=== PATIENT | male | born 1955 | race Caucasian/White ===

== ENCOUNTER 2022-02-08 13:17 | Outpatient (REF) | payer MEDICARE, SELFPAY ==
[2022-02-08 17:50] LABS: ALT 127 U/L (16-63); AST 167 U/L (15-37); Alkaline Phosphatase 77 U/L (46-116); Anion Gap 7.4 mmol/L (3-11); BUN 15 mg/dL (7-18); Bilirubin, Total 0.5 mg/dL (0.2-1.0); CO2 29.6 mmol/L (21.0-32.0); Calcium 8.6 mg/dL (8.5-10.1); Calculated LDL 110 mg/dL (<100); Chloride 105 mmol/L (98-107); Cholesterol 181 mg/dL (<200); Glucose 91 mg/dL (74-106); HDL Cholesterol 63 mg/dL (40-60); Sodium 142 mmol/L (136-145); Total Protein 7.3 g/dL (6.4-8.2); Triglyceride 43 mg/dL (<150); Vitamin B12 534 pg/mL (193-986)
[2022-02-11 09:42] LABS: PSA, Screening 1.3 ng/mL (<=4.5)
== END 2022-02-08 13:18 | disposition home or self-care (01) ==
LOC: NCHCN 13:17
PROVIDERS: PCP Nurse Practitioner; Visit Provider Nurse Practitioner Family
DX: E78.5 Hyperlipidemia, unspecified (principal); K42.9 Umbilical hernia without obstruction or gangrene; J30.2 Other seasonal allergic rhinitis; H91.93 Unspecified hearing loss, bilateral; F43.21 Adjustment disorder with depressed mood; N20.0 Calculus of kidney; K22.70 Barrett's esophagus without dysplasia; I10 Essential (primary) hypertension
CPT/HCPCS: 80053; 80061; 84153; 82607; 83735

== ENCOUNTER 2022-06-04 15:19 | Outpatient (REF) | payer MEDICARE, SELFPAY | END 2022-06-04 15:20 | disposition home or self-care (01) | LOC: NCHCN 15:19 | PROVIDERS: PCP Nurse Practitioner; Visit Provider Nurse Practitioner Family | DX: N20.0 Calculus of kidney (principal) | CPT/HCPCS: 87086 ==

== ENCOUNTER 2022-07-01 10:44 | Outpatient (REF) | payer MEDICARE, SELFPAY ==
[2022-07-01 17:50] LABS: Anion Gap 8.2 mmol/L (3-11); BUN 17 mg/dL (7-18); CO2 27.8 mmol/L (21.0-32.0); Calcium 8.7 mg/dL (8.5-10.1); Chloride 106 mmol/L (98-107); Estimated GFR 83.01 (mL/min/1.73m2); Glucose 134 mg/dL (74-106); Potassium 3.7 mmol/L (3.5-5.1); Sodium 142 mmol/L (136-145)
== END 2022-07-01 10:45 | disposition home or self-care (01) ==
LOC: NCHCN 10:44
PROVIDERS: PCP Nurse Practitioner; Visit Provider Nurse Practitioner Family
DX: I10 Essential (primary) hypertension (principal)
CPT/HCPCS: 80048

== ENCOUNTER 2022-09-17 13:36 | Outpatient (REF) | payer MEDICARE, SELFPAY ==
[2022-09-17 14:50] LABS: Anion Gap 5.3 mmol/L (3-11); BUN 19 mg/dL (7-18); CO2 30.7 mmol/L (21.0-32.0); CREATININE 1.1 mg/dL (0.70-1.30); Chloride 104 mmol/L (98-107); Estimated GFR 73.58 (mL/min/1.73m2); Glucose 94 mg/dL (74-106); Potassium 4.1 mmol/L (3.5-5.1); Sodium 140 mmol/L (136-145)
== END 2022-09-17 13:37 | disposition home or self-care (01) ==
LOC: NCHCN 13:36
PROVIDERS: PCP Nurse Practitioner; Visit Provider Nurse Practitioner Family
DX: I10 Essential (primary) hypertension (principal); J45.20 Mild intermittent asthma, uncomplicated; F43.21 Adjustment disorder with depressed mood
CPT/HCPCS: 80048

== ENCOUNTER 2023-05-30 12:31 | Outpatient (CLI) | payer MEDICARE, SELFPAY ==
--- NOTE | 2023-05-30 | DI.RAD_ITS ---
Exam(s) XR FOOT RT COMPLETE EXAM: XR FOOT RT COMPLETE CLINICAL HISTORY: RT FOOT PAIN, [id number]. TECHNIQUE: 2D digital imaging was performed of the right foot. Three images were obtained. AP, obl ique and lateral views were obtained. COMPARISON: No exams were available for comparison FINDINGS: BONES: No acute fracture is present. No bony destructive lesion is seen. There is a small spur at the plantar surface of the calcaneus. There is an enthesophyte at the posterior calcaneus. JOINTS: No dislocation present. Mild degenerative changes are seen. SOFT TISSUE: Normal. IMPRESSION: 1. No acute abnormality. 2. Mild degenerative changes of the foot. DATA REPOSITORY: RADIATION DOSE DELIVERED:
== END 2023-05-30 12:51 ==
LOC: DI 12:31
PROVIDERS: PCP Nurse Practitioner Family; Visit Provider Family Medicine
DX: M19.071 Primary osteoarthritis, right ankle and foot
CPT/HCPCS: 73630

== ENCOUNTER 2023-10-28 10:35 | Outpatient (REF) | payer MEDICARE, SELFPAY ==
[2023-10-28 15:01] LABS: Abs Immature Grans 0.04 10^3/uL (0.0-0.06); Absolute Basophil Count 0.04 10^3/uL (0.0-0.2); Absolute Eosinophil Count 0.11 10^3/uL (0.0-0.7); Absolute Lymphocyte Count 1.39 10^3/uL (1.2-3.4); Absolute Monocyte Count 0.76 10^3/uL (0.1-0.8); Absolute Neutrophil Count 5.84 10^3/uL (1.2-6.7); Basophils % 0.5; Eosinophils % 1.3; HCT 45.7 % (40.0-50.0); HGB 14.9 g/dL (13.5-17.5); Immature Grans % 0.5; MCH 29.2 pg (27.0-33.0); MCHC 32.6 % (32.0-36.0); MCV 90 fL (80-95); MPV 9.6 fL (8.0-11.0); Monocytes % 9.3; Neutrophils % 71.4; Platelet Count 240 10^3/uL (130-400); RDW 12.5 % (11.8-14.1); RDW-SD 41.9 fL; WBC 8.18 10^3/uL (4.4-10.8)
[2023-10-28 15:46] LABS: ALT 61 U/L (16-63); AST 40 U/L (15-37); Albumin 4.2 g/dL (3.4-5.0); Alkaline Phosphatase 64 U/L (46-116); Anion Gap 6.2 mmol/L (3-11); BUN 18 mg/dL (7-18); Bilirubin, Total 0.4 mg/dL (0.2-1.0); CO2 32.8 mmol/L (21.0-32.0); CREATININE 1.1 mg/dL (0.70-1.30); Calcium 9.7 mg/dL (8.5-10.1); Calculated LDL 165 mg/dL (<100); Chloride 101 mmol/L (98-107); Cholesterol 239 mg/dL (<200); Estimated GFR 73.12 (mL/min/1.73m2); Glucose 109 mg/dL (74-106); HDL Cholesterol 53 mg/dL (40-60); Magnesium 2.2 mg/dL (1.8-2.4); Potassium 4.6 mmol/L (3.5-5.1); Sodium 140 mmol/L (136-145); Total Protein 7.7 g/dL (6.4-8.2); Triglyceride 107 mg/dL (<150); Vitamin B12 583 pg/mL (193-986)
[2023-10-28 22:08] LABS: PSA, Diagnostic 0.8 ng/mL (<=4.5)
[2023-10-28 23:02] LABS: Hepatitis A Antibody IgM Negative (Negative); Hepatitis B Core Antibody Negative (Negative); Hepatitis B surface Ag Negative (Negative); Hepatitis C Ab w Rflx HCV PCR Negative (Negative)
== END 2023-10-28 10:36 | disposition home or self-care (01) ==
LOC: NCHCN 10:35
PROVIDERS: PCP Nurse Practitioner Family; Visit Provider Nurse Practitioner Family
DX: K76.0 Fatty (change of) liver, not elsewhere classified (principal); K22.70 Barrett's esophagus without dysplasia; I10 Essential (primary) hypertension; N40.0 Benign prostatic hyperplasia without lower urinary tract symptoms; Z79.899 Other long term (current) drug therapy
CPT/HCPCS: 80053; 80061; 86704; 86709; 86803; 87340; 82607; 83735; 84153; 85025

== ENCOUNTER 2024-11-23 14:27 | Outpatient (REF) | payer MEDICARE, SELFPAY ==
[2024-11-23 21:29] LABS: Abs Immature Grans 0.06 10^3/uL (0.0-0.06); Absolute Basophil Count 0.04 10^3/uL (0.0-0.2); Absolute Eosinophil Count 0.22 10^3/uL (0.0-0.7); Absolute Lymphocyte Count 1.72 10^3/uL (1.2-3.4); Absolute Monocyte Count 0.83 10^3/uL (0.1-0.8); Absolute Neutrophil Count 5.41 10^3/uL (1.2-6.7); Basophils % 0.5 %; Eosinophils % 2.7 %; HCT 39.5 % (40.0-50.0); HGB 13.2 g/dL (13.5-17.5); Immature Grans % 0.7 %; Lymphocytes % 20.8 %; MCHC 33.4 % (32.0-36.0); MCV 90 fL (80-95); MPV 9.3 fL (8.0-11.0); Neutrophils % 65.3 %; Platelet Count 221 10^3/uL (130-400); RDW 13.2 % (11.8-14.1); RDW-SD 43.8 fL; WBC 8.28 10^3/uL (4.4-10.8)
[2024-11-23 21:40] LABS: Bilirubin Negative (Negative); Blood Negative (Negative); Clarity Clear (Clear); Glucose Negative (Negative); Ketones Negative (Negative); Leukocyte Esterase Negative (Negative); Nitrite Negative (Negative); Urobilinogen 0.2 mg/dL (Up to 0.2)
[2024-11-23 22:06] LABS: ALT 61 U/L (16-63); AST 46 U/L (15-37); Albumin 3.9 g/dL (3.4-5.0); Alkaline Phosphatase 78 U/L (46-116); BUN 16 mg/dL (7-18); Bilirubin, Total 0.54 mg/dL (0.2-1.0); CO2 28.7 mmol/L (21.0-32.0); Calculated LDL 120 mg/dL (<100); Cholesterol 210 mg/dL (<200); Estimated GFR 81.47 (mL/min/1.73m2); Glucose 91 mg/dL (74-106); HDL Cholesterol 52 mg/dL (40-60); Magnesium 2.1 mg/dL (1.8-2.4); Total Protein 7.3 g/dL (6.4-8.2); Triglyceride 190 mg/dL (<150); Vitamin B12 468 pg/mL (193-986)
[2024-11-23 22:11] LABS: Anion Gap 9.3 mmol/L (3-11); Chloride 104 mmol/L (98-107); Potassium 4.2 mmol/L (3.5-5.1); Sodium 142 mmol/L (136-145)
[2024-11-23 22:24] LABS: COMMENT (LAB VIEW ONLY) 136.22 mg/dL; Microalb ug/mg Crea 5.7 ug/mg Cr
[2024-11-24 09:56] LABS: Hemoglobin A1C 5.8 % (<5.7)
[2024-11-24 18:09] LABS: PSA, Diagnostic 1.1 ng/mL (<=4.5)
== END 2024-11-23 14:28 | disposition home or self-care (01) ==
LOC: NCHCN 14:27
PROVIDERS: PCP Nurse Practitioner Family; Visit Provider Nurse Practitioner Family
DX: K76.0 Fatty (change of) liver, not elsewhere classified (principal); K22.70 Barrett's esophagus without dysplasia
CPT/HCPCS: 80053; 80061; 81003; 82043; 82570; 82607; 83036; 83735; 84153; 85025

== ENCOUNTER 2025-05-26 16:40 | Outpatient (REF) | payer MEDICARE, SELFPAY ==
[2025-05-26 20:41] LABS: Abs Immature Grans 0.03 10^3/uL (0.0-0.06); HCT 42.0 % (40.0-50.0); HGB 14.1 g/dL (13.5-17.5); Immature Grans % 0.4 %; MCH 30.3 pg (27.0-33.0); MCHC 33.6 % (32.0-36.0); MCV 90 fL (80-95); MPV 9.3 fL (8.0-11.0); Platelet Count 244 10^3/uL (130-400); RBC 4.65 10^6/uL (4.36-5.78); RDW 12.9 % (11.8-14.1); RDW-SD 42.6 fL; WBC 8.27 10^3/uL (4.4-10.8)
[2025-05-26 20:57] LABS: Iron 86 ug/dL (65-175); Total Iron Binding Capacity 288 ug/dL (250-450); Transferrin Sat 30 % (20-55)
[2025-05-26 21:06] LABS: Ferritin 81 ng/mL (26-388)
== END 2025-05-26 16:41 | disposition home or self-care (01) ==
LOC: NCHCN 16:40
PROVIDERS: PCP Nurse Practitioner Family; Visit Provider Nurse Practitioner Family
DX: D64.9 Anemia, unspecified (principal)
CPT/HCPCS: 82728; 83540; 83550; 85025